=== PATIENT | female | born 1960 | race Caucasian/White ===

== ENCOUNTER 2021-12-01 03:13 | Emergency (ER) | payer BC ==
[~2021-12-01] VITALS: Ht 160 cm; Wt 65.9 kg
[2021-12-01] MEDS ORDERED: normal saline 1000ml 1,000 ML IV ONE (03:30)
[2021-12-01] MEDS ORDERED: ondansetron/PF 4mg/2ml inj IV ONE (03:30)
[2021-12-01] MEDS ORDERED: morphine 4 MG/ML inj SYRINge IV ONE ×2 (03:30→04:05)
[2021-12-01 04:02] LABS: BASOPHILS % (AUTO) 0.3 % (0-1); EOSINOPHILS % (AUTO) 0.4 % (0-6); HEMATOCRIT 38.2 % (35.0-45.0); HEMOGLOBIN 12.8 g/dl (12.0-16.0); LYMPHOCYTES # (AUTO) 1.1 X10'3 (1.1-4.8); LYMPHOCYTES % (AUTO) 10.3 % (21-51); MEAN CORPUSCULAR HEMOGLOBIN 30.9 PG (27.0-31.0); MEAN CORPUSCULAR HGB CONC 33.5 g/dL (33.0-36.5); MEAN CORPUSCULAR VOLUME 92.4 FL (78-98); MEAN PLATELET VOLUME 10.1 FL (7.4-10.4); MONOCYTES # (AUTO) 0.2 X10'3 (0-0.9); MONOCYTES % (AUTO) 1.6 % (2-12); NEUTROPHILS # (AUTO) 9.4 X10'3 (1.8-7.7); NEUTROPHILS % (AUTO) 87.4 % (42-75); PLATELET COUNT 259 X10'3 (140-440); RED BLOOD COUNT 4.14 X10'6 (4.20-5.60); RED CELL DISTRIBUTION WIDTH 12.8 % (11.5-14.5); WHITE BLOOD COUNT 10.7 X10'3 (4.5-11.0)
[2021-12-01] MEDS ORDERED: morphine 4 MG/ML inj SYRINge ONE (04:03)
[2021-12-01 04:10] LABS: ALANINE AMINOTRANSFERASE 20 U/L (12-78); ALBUMIN 3.9 G/DL (3.4-5.0); ALBUMIN/GLOBULIN RATIO 1.3 (1.1-1.5); ALKALINE PHOSPHATASE 89 IU/L (46-116); ANION GAP 13 (8-16); ASPARTATE AMINO TRANSFERASE 17 U/L (10-37); BILIRUBIN,DIRECT 0.1 MG/DL (0-0.3); BILIRUBIN,TOTAL 0.3 MG/DL (0.1-1.0); BLOOD UREA NITROGEN 16 MG/DL (7-18); CALCIUM 8.8 MG/DL (8.5-10.1); CHLORIDE 106 MMOL/L (99-107); CREATININE 1.07 MG/DL (0.40-0.90); GLUCOSE 149 MG/DL (70-104); LIPASE 155 U/L (73-393); SODIUM 143 MMOL/L (135-145); TOTAL CARBON DIOXIDE 24.3 MMOL/L (24-32); TOTAL PROTEIN 6.9 G/DL (6.4-8.2); eGFR 52 ML/MIN
[2021-12-01 04:20] LABS: POTASSIUM 2.9 MMOL/L (3.5-5.1)
[2021-12-01] MEDS ORDERED: potassium Cl 20 mEq SR tablet PO STA (04:22)
[2021-12-01 04:49] LABS: CLARITY,URINE SLIGHTLY CLOUDY (Clear); COLOR,URINE YELLOW (Yellow); GLUCOSE, URINE NEGATIVE (Neg); KETONES,URINE 15 mg/dl (Neg); LEUKOCYTE ESTERASE ,URINE NEGATIVE (Neg); NITRITES, URINE NEGATIVE (Neg); OCCULT BLOOD,URINE NEGATIVE (Neg); PROTEIN,URINE NEGATIVE (Neg); UROBILINOGEN,URINE 0.2 E.U/dL (0.2-1.0)
[2021-12-01] MEDS ORDERED: iohexol 300mg/ml 100ml inj. ONE (04:54)
[2021-12-01 04:55] LABS: UA COLLECTION TYPE VOIDED
[2021-12-01 04:56] LABS: MUCUS STRANDS FEW /LPF (Neg); SQUAMOUS EPITHELIAL CELL,UR MANY /LPF (FEW)
[2021-12-01 04:57] LABS: BACTERIA,URINE FEW /HPF (Neg)
[2021-12-01 04:58] LABS: WBC,URINE 0-4 /HPF (0-4)
[2021-12-01] MEDS ORDERED: METR-159 PO (06:18)
[2021-12-01] MEDS ORDERED: HYDR-3964 PO (06:18)
[2021-12-01] MEDS ORDERED: CIPR-259 PO (06:18)
[2021-12-01] MEDS ORDERED: ONDA4TAB12 PO (06:18)
[2021-12-01 06:44] VITALS: BP 138/66
== END 2021-12-01 06:53 | disposition home or self-care (01) ==
LOC: ER 03:14
DX: K52.9 Noninfective gastroenteritis and colitis, unspecified (principal); R10.32 Left lower quadrant pain; R11.2 Nausea with vomiting, unspecified; J45.909 Unspecified asthma, uncomplicated; Z79.2 Long term (current) use of antibiotics; Z79.899 Other long term (current) drug therapy
CPT/HCPCS: 36415; 74177; 80048; 80076; 81001; 83690; 85025; 96361; 96374; 96375; 99285; J2270; J2405; J7030; Q9967

== ENCOUNTER → 2025-02-10 | Outpatient (CLI) | payer MEDICARE, BC ==
[~2025-02-10] MED LIST: ONDA-243 PO
== END | disposition home or self-care (01) ==
LOC: RAD 13:40
PROVIDERS: ATTEND Registered Nurse
DX: M25.551 Pain in right hip (principal)
CPT/HCPCS: 73502